=== PATIENT | male | born 1955 | race Caucasian/White ===

== ENCOUNTER → 2016-04-24 | Outpatient (CLI) | payer MEDICARE, OTHER ==
--- NOTE | 2016-04-24 16:31 | RADRPT ---
Echocardiogram Report Patient Name: TERRY JENKINS Gender: Male Date: 1955 Study Date: 24-Apr-2016 [employer] Firer/Fireman: Maxime Burnette RDCS Location: EKG Ref. Physician: ALEXA ECKERT Quality: Adequate Procedures: Transthoracic echocardiogram with complete 2D, M-Mode, and doppler examination. Indications: Abnormal EKG. 2D/M Mode Doppler Measurement Value Normal Ranges Measurement Value Normal Ranges LVIDd 2D 4.5 3.5 - 5.6 cm AV Peak Giovanny 1.1 m/sec LVIDs 2D 2.4 2.1 - 4.1 cm AV Peak PG 5.0 mmHg FS 2D 46.5 % LVOT Peak Giovanny 1.0 m/sec LVPWd 2D 0.9 0.6 - 1.1 cm LVOT Peak PG 4.0 mmHg IVSd 2D 0.9 0.6 - 1.1 cm MV E Peak Giovanny 0.6 m/sec IVS/LVPW 2D 1.1 MV A Peak Giovanny 0.6 m/sec AoR Diam 2D 3.2 2.0 - 3.7 cm MV E/A 0.9 LA/Ao 2D 1 0 - 1 MV Decel Time 180 msec EDV 2D 93.6 cm3 MV E/A 0.9 ESV 2D 14.3 cm3 LA Dimen 2D 3.5 2.3 - 4.0 cm Findings Left Ventricle: Normal left ventricular systolic function. Normal left ventricular cavity size. Normal left ventricular wall thickness. Ejection fraction is visually estimated at 60 %. Tissue Doppler/Mitral Doppler indices are consistent with impaired relaxation (Stage I diastolic dysfunction). Right Ventricle: Normal right ventricular size. Normal right ventricular systolic function. Left Atrium: The left atrium is normal in size. Right Atrium: The right atrium is normal in size. Mitral Valve: Normal appearance and function of the mitral valve with trace physiologic regurgitation. Aortic Valve: Normal appearance of the aortic valve. No significant aortic stenosis or insufficiency. Tricuspid Valve: Normal appearance of the tricuspid valve. Unable to obtain RVSP due to minimal presence of tricuspid regurgitation. Pulmonic Valve: Normal pulmonic valve appearance. Pericardium: Normal pericardium with no significant pericardial effusion. Aorta: Normal aortic root. IVC: Normal size and normal respiratory collapse consistent with normal right atrial pressure. Conclusions 1.Normal left ventricular systolic function. Normal left ventricular cavity size. Normal left ventricular wall thickness. Ejection fraction is visually estimated at 60 %. Tissue Doppler/Mitral Doppler indices are consistent with impaired relaxation (Stage I diastolic dysfunction). 2.Normal appearance and function of the mitral valve with trace physiologic regurgitation. 3.Normal appearance of the tricuspid valve. Unable to obtain RVSP due to minimal presence of tricuspid regurgitation. Electronically Signed By: Alexa Eckert 24-Apr-2016 16:30:38 -0800 Patient Name: TERRY JENKINS Study Date: 24-Apr-2016 [id number]
== END | disposition home or self-care (01) ==
LOC: EKG 11:02
PROVIDERS: ATTEND Internal Medicine
DX: R94.31 Abnormal electrocardiogram [ECG] [EKG] (principal)
CPT/HCPCS: 93306

== ENCOUNTER → 2017-11-27 | Outpatient (CLI) | END | disposition home or self-care (01) ==

== ENCOUNTER → 2018-10-08 | Outpatient (CLI) | payer MEDICARE, OTHER ==
--- NOTE | 2018-10-08 17:35 | RADRPT ---
Echocardiogram Report Patient Name: Juany JENKINS ID: [id number] : 1955 (63y 8m)Study Date: 10/08/2018 9:17:14 AM Gender: MAccession #: [id number] Tech: Jose Fleming [facility] Location: EKG Ref.Physician: ALEXA ECKERT Height(Cm): BSA: Weight(Kg): Quality: AdequateOrder Physician: ALEXA ECKERT Account #: Procedures: Echocardiographic Report: Transthoracic echocardiogram with complete 2D, M-Mode, and doppler examination. Indications: HTN, Rheumatic MV. Measurements: 2D/M Mode Doppler Measurement Value Normal Range Measurement Value Normal Range LVIDd 2D 3.7 [ 4.2 - 5.8 ] cm AV Peak Giovanny 0.9 [ 100.0 - 170.0 ] cm/sec LVIDs 2D 2.4 [ 2.5 - 4.0 ] cm AV Peak PG 3.0 [ 2.0 - 9.0 ] mmHg IVSd 2D 1.3 [ 0.6 - 1.0 ] cm LVOT Peak Giovanny 0.7 [ 70.0 - 110.0 ] cm/sec IVS/LVPW 2D 1.4 ratio LVOT Peak PG 2.0 [ 2.0 - 6.0 ] mmHg AoR Diam 2D 2.5 [ 2.6 - 3.4 ] cm MV E Peak Giovanny 0.5 [ 60.0 - 130.0 ] cm/sec LA/Ao 2D 1 ratio MV A Peak Giovanny 0.6 [ 100.0 - 120.0 ] cm/sec LA Dimen 2D 3.2 [ 3.0 - 4.0 ] cm MV E/A 0.8 [ 0.8 - 1.5 ] ratio MV Decel Time 225 [ 104 - 258 ] msec MV E/A 0.8 [ 0.8 - 1.5 ] ratio TR Peak Giovanny 2.3 [ 100.0 - 280.0 ] cm/sec TR Peak PG 21.0 mmHg RVSP 24.0 [ 10.0 - 36.0 ] mmHg Findings: Left Ventricle: Normal left ventricular systolic function. Normal left ventricular cavity size. Sigmoid septum. Ejection fraction is visually estimated at 60 %. Tissue Doppler/Mitral Doppler indices are consistent with impaired relaxation (Stage I diastolic dysfunction). Right Ventricle: Normal right ventricular size. Normal right ventricular systolic function. Left Atrium: The left atrium is normal in size. Right Atrium: The right atrium is normal in size. Mitral Valve: Mild mitral leaflet calcification. Mild mitral annular calcification. Trace mitral regurgitation. Aortic Valve: No significant aortic stenosis or insufficiency. Aortic cusps appear mildly calcified. Tricuspid Valve: Normal appearance of the tricuspid valve. There is trace tricuspid regurgitation. Pericardium: Normal pericardium with no significant pericardial effusion. Left pleural effusion seen. Aorta: Normal aortic root. IVC: Normal size and normal respiratory collapse consistent with normal right atrial pressure. Conclusions: Normal left ventricular systolic function. Normal left ventricular cavity size. Sigmoid septum. Ejection fraction is visually estimated at 60 %. Tissue Doppler/Mitral Doppler indices are consistent with impaired relaxation (Stage I diastolic dysfunction). Mild mitral leaflet calcification. Mild mitral annular calcification. Trace mitral regurgitation. Normal appearance of the tricuspid valve. There is trace tricuspid regurgitation. Electronically Signed By: Alexa Eckert 2018-10-08 17:34:26 PDT
== END | disposition home or self-care (01) ==
LOC: EKG 08:55
PROVIDERS: ATTEND Internal Medicine
DX: I20.9 Angina pectoris, unspecified (principal); I10 Essential (primary) hypertension; I34.0 Nonrheumatic mitral (valve) insufficiency
CPT/HCPCS: 93306